=== PATIENT | female | born 1970 | race Two or more races ===

== ENCOUNTER 2022-05-24 07:48 | Emergency (ER) | payer BC ==
[~2022-05-24] VITALS: Ht 160 cm; Wt 68.0 kg
== END 2022-05-24 14:54 | disposition home or self-care (01) ==
LOC: ER 07:48
DX: N20.0 Calculus of kidney (principal)

== ENCOUNTER 2022-05-28 17:27 | Emergency (ER) | payer BC ==
[~2022-05-28] VITALS: Ht 154.9 cm; Wt 76.2 kg
== END 2022-05-28 22:32 | disposition home or self-care (01) ==
LOC: ER 17:27
DX: N20.0 Calculus of kidney (principal)